=== PATIENT | male | born 1990 | race African-American/Black ===

== ENCOUNTER 2017-07-16 08:48 | Emergency (ER) | payer SELFPAY ==
[~2017-07-16] VITALS: Ht 182.9 cm; Wt 59.0 kg
[2017-07-16] MEDS ORDERED: SODIUM CHLORIDE 0.9% 1,000 ML IV ONE (10:28)
[2017-07-16] MEDS ORDERED: KETOROLAC 30MG/ML VIAL IV ONE (10:30)
[2017-07-16 10:50] LABS: BASOPHILS % 0.7 % (0.0-2.0); EOSINOPHILS % 0.4 % (0.0-5.0); HEMATOCRIT. 46.1 % (42.0-52.0); LYMPHOCYTES % 16.2 % (20.0-50.0); MEAN CORPUSCULAR HEMOGLOBIN 32.6 pg (28.0-32.0); MEAN CORPUSCULAR VOLUME 93.6 fL (80.0-94.0); MEAN PLATELET VOLUME 8.4 fl (7.4-10.4); MONOCYTES % 6.3 % (2.0-8.0); NEUTROPHILS % 76.4 % (40.0-76.0); PLATELET 196 x1000/uL (130-400); RED BLOOD CELL COUNT 4.92 mill/uL (4.7-6.1); RED CELL DISTRIBUTION WIDTH 12.5 % (11.6-14.6)
[2017-07-16 10:51] LABS: CHLORIDE 105 mEq/L (98-107)
[2017-07-16 11:00] LABS: INR 1.2; PARTIAL THROMBOPLASTIN TIME 25.2 sec (23.4-31.0)
[2017-07-16 11:03] LABS: CARBON DIOXIDE 28 mEq/L (21-32)
[2017-07-16 11:25] VITALS: BP 111/53
== END 2017-07-16 12:42 | disposition left against medical advice (07) ==
LOC: ER 09:39
DX: R10.9 Unspecified abdominal pain (principal); R11.0 Nausea; R30.0 Dysuria; R03.0 Elevated blood-pressure reading, without diagnosis of hypertension; Z87.442 Personal history of urinary calculi; K64.9 Unspecified hemorrhoids; K60.2 Anal fissure, unspecified; Z87.19 Personal history of other diseases of the digestive system; K21.9 Gastro-esophageal reflux disease without esophagitis; F12.90 Cannabis use, unspecified, uncomplicated
CPT/HCPCS: 36415; 80053; 85025; 85610; 85730; 99284; Z7610; J1885; J7030